=== PATIENT | male | born 1980 | race Caucasian/White ===

== ENCOUNTER → 2020-07-18 | Outpatient (CLI) | payer BC, OTHER | END | disposition home or self-care (01) | LOC: LABWHC1 16:03 | PROVIDERS: ATTEND Emergency Medicine | DX: Z20.828 Contact with and (suspected) exposure to other viral communicable diseases (principal) | CPT/HCPCS: U0003; C9803 ==

== ENCOUNTER → 2020-11-10 | Outpatient (CLI) | payer BC ==
--- NOTE | 2020-11-10 10:43 | XR ---
EXAMINATION TYPE: XR chest 2V DATE OF EXAM: 11/10/2020 COMPARISON: NONE HISTORY: Leukocytosis. TECHNIQUE: Frontal and lateral views of the chest are obtained. FINDINGS: There is no focal air space opacity, pleural effusion, or pneumothorax seen. The cardiac silhouette size is within normal limits. The osseous structures are intact. IMPRESSION: No acute cardiopulmonary process.
== END ==
LOC: RADXRMAIN 09:10
PROVIDERS: ATTEND Internal Medicine Hematology & Oncology
DX: D72.829 Elevated white blood cell count, unspecified (principal)
CPT/HCPCS: 71046

== ENCOUNTER → 2021-03-05 | Outpatient (CLI) | payer BC ==
--- NOTE | 2021-03-05 12:27 | MR ---
EXAMINATION TYPE: MR cervical spine wo con DATE OF EXAM: 03/05/2021 COMPARISON: None HISTORY: Neck pain into rt arm and fingers TECHNIQUE: Multiplanar, multisequence images of the cervical spine were acquired. C2-C3: No evidence for degenerative disc disease. No disc bulge/herniation or protrusion. No Canal stenosis. Foramina are patent bilaterally. C3-C4: No evidence for degenerative disc disease. No disc bulge/herniation or protrusion. No Canal stenosis. Foramina are patent bilaterally. C4-C5: Left-sided foraminal encroachment is present due to uncovertebral joint hypertrophy. No signif icant spinal stenosis or evident disc herniation. C5-C6: Posterior extension endplate disc complex causes effacement of anterior thecal sac. There is r ight lateral, posterior paracentral extension endplate disc complex causing anterolateral mass effect on the thecal sac, encroachment on the right neural foramen with anterolateral mass effect on the th ecal sac, possibly contact with the cervical cord laterally, uncovertebral joint hypertrophy also cau ses left-sided foraminal encroachment. No significant spinal stenosis. C6-C7: Posterior extension endplate disc complex results in mild spinal stenosis. There is bilateral foraminal encroachment left greater than right, facet arthropathy changes present. Circumferential po sterior disc bulge is noted. C7-T1: No evidence for degenerative disc disease. No disc bulge/herniation or protrusion. No Canal stenosis. Foramina are patent bilaterally. Cervical segments are intact. There is normal alignment. Cervical spinal cord is of normal signal. Craniovertebral junction relationships are within normal limits. There is multilevel spondylosis. L oss of disc height signal is present at C5-6 and C6-7 greater than C4-5, there is associated endplate discogenic marrow signal change. IMPRESSION: Degenerative disc disease as described. Multilevel foraminal encroachment.
== END | disposition home or self-care (01) ==
LOC: RADMRIMAIN 07:44
PROVIDERS: ATTEND Nurse Practitioner
DX: M48.02 Spinal stenosis, cervical region (principal); M47.22 Other spondylosis with radiculopathy, cervical region; M99.71 Connective tissue and disc stenosis of intervertebral foramina of cervical region
CPT/HCPCS: 72141

== ENCOUNTER 2024-02-05 17:14 | Emergency (ER) | payer BC ==
[2024-02-05 17:26] VITALS: TEMP 97.9
--- NOTE | 2024-02-05 17:52 | ED ---
Recheck HPI - General Source: patient Mode of arrival: ambulatory Limitations: no limitations <Francisco Kulkarni - Last Filed: 02/19/24 04:17> <Valeriano Reyes - Last Filed: 02/29/24 13:35> - General Chief Complaint: Recheck/Abnormal Lab/Rx Stated Complaint: HTN Time Seen by Provider: 02/05/24 17:51 - History of Present Illness Initial Comments: Quick note: 44-year-old male sent from his doctor's office for hypertension. Patient was previously on antihypertensives, he is not sure which medications, states that he stopped taking them because "I do not like taking pills". When he was seen at the doctor today for a separate issue they sent him over due to his elevated blood pressure. He denies any chest pain, difficulty breathing, headache, blurry vision, dizziness, abdominal pain, nausea, vomiting. (Francisco Kulkarni) - Related Data Previous Rx's Medication Instructions Recorded lisinopriL [Zestril] 10 mg PO DAILY #30 tab 02/05/24 Allergies Allergy/AdvReac Type Severity Reaction Status Date / Time No Known Allergies Allergy Verified 02/05/24 17:26 Review of Systems ROS Other: All systems not noted in ROS Statement are negative. <Francisco Kulkarni - Last Filed: 02/19/24 04:17> ROS Other: All systems not noted in ROS Statement are negative. <Valeriano Reyes - Last Filed: 02/29/24 13:35> ROS Statement: Those systems with pertinent positive or pertinent negative responses have been documented in the HPI. Past Medical History Past Medical History: Hypertension History of Any Multi-Drug Resistant Organisms: None Reported Past Surgical History: No Surgical Hx Reported Past Psychological History: No Psychological Hx Reported Smoking Status: Vaper Past Alcohol Use History: None Reported Past Drug Use History: None Reported <Francisco Kulkarni - Last Filed: 02/19/24 04:17> General Exam Limitations: no limitations <Francisco Kulkarni - Last Filed: 02/19/24 04:17> Limitations: no limitations General appearance: alert, in no apparent distress Head exam: Present: atraumatic, normocephalic Eye exam: Present: normal appearance. Absent: scleral icterus, conjunctival injection Neck exam: Present: normal inspection Respiratory exam: Present: normal lung sounds bilaterally. Absent: respiratory distress, wheezes, rales, rhonchi, stridor, accessory muscle use Cardiovascular Exam: Present: regular rate, normal rhythm, normal heart sounds. Absent: systolic murmur, diastolic murmur, rubs, gallop GI/Abdominal exam: Present: soft. Absent: distended, tenderness, guarding, rebound, rigid, mass Extremities exam: Present: normal inspection, normal capillary refill. Absent: pedal edema, calf tenderness Back exam: Present: normal inspection. Absent: CVA tenderness (R), CVA tenderness (L) Neurological exam: Present: alert Skin exam: Present: warm, dry, intact, normal color. Absent: rash <Valeriano Reyes - Last Filed: 02/29/24 13:35> - General Exam Comments Initial Comments: Visual Physical Exam Vital signs reviewed General: Well-appearing, nontoxic, no acute distress. Head: Normocephalic, atraumatic Eyes: PERRLA, EOMI ENT: Airway patent Chest: Nonlabored breathing Skin: No visual rash, normal skin tone Neuro: Alert and oriented 3 Musculoskeletal: No gross abnormalities (Francisco Kulkarni) Course Vital Signs 02/05/24 02/05/24 17:24 22:25 Temperature 97.9 F Pulse Rate 96 93 Respiratory 16 18 Rate Blood Pressure 234/153 212/146 O2 Sat by Pulse 94 L 97 Oximetry Medical Decision Making - Lab Data Result diagrams: 02/05/24 18:08 02/05/24 18:08 <Francisco Kulkarni - Last Filed: 02/19/24 04:17> - Lab Data Result diagrams: 02/05/24 18:08 02/05/24 18:08 - EKG Data -: EKG Interpreted by Oh EKG shows normal: sinus rhythm, axis (Normal), intervals (Normal), QRS complexes (Incomplete right bundle branch block.) Rate: tachycardia (Rate 101 bpm) Interpretation: nonspecific ST-T wave changes <Valeriano Reyes - Last Filed: 02/29/24 13:35> - Medical Decision Making I performed the quick note portion of this visit, electronically signed Francisco Kulkarni PA-C (Francisco Kulkarni) Was pt. sent in by a medical professional or institution ([facility], [facility], urgent care, hospital, or fpc...) When possible be specific @ -Patient is sent by his primary physician clinic to have further evaluation hypertension Did you speak to anyone other than the patient for history (EMS, parent, family, police, friend...)? What history was obtained from this source @ -[No] Did you review nursing and triage notes (agree or disagree)? Why? @ -[I reviewed and agree with nursing and triage notes] Were old charts reviewed (outside hosp., previous admission, EMS record, old EKG, old radiological studies, urgent care reports/EKG's, fpc records)? Report findings @ -[No old charts were reviewed] Differential Diagnosis (chest pain, altered mental status, abdominal pain women, abdominal pain men, vaginal bleeding, weakness, fever, dyspnea, syncope, headache, dizziness, GI bleed, back pain, seizure, CVA, palpatations, mental health, musculoskeletal)? @ -[Amphetamine Toxicity Anxiety Disorders Apnea, Sleep Cocaine-Related Cardiomyopathy Heart Failure Hyperthyroidism, Thyroid Storm, and Graves Disease Hypertrophic Cardiomyopathy Myocardial Infarction Phencyclidine Toxicity Primary Aldosteronism Stroke, Hemorrhagic Stroke, Ischemic EKG interpreted by me (3pts min.). @ -[I interpreted as above] X-rays interpreted by me (1pt min.). @ -[ CT interpreted by me (1pt min.). @ -[None done] U/S interpreted by me (1pt. min.). @ -[None done] What testing was considered but not performed or refused? (CT, X-rays, U/S, labs)? Why? @ -[None] What meds were considered but not given or refused? Why? @ -[None] Did you discuss the management of the patient with other professionals (professionals i.e. , PA, [facility], lab, RT, psych nurse, case management social worker, drafter commercial, teacher, public relations officer, protective services case worker)? Give summary @ -[No] Was smoking cessation discussed for >3mins.? @ -[No] Was critical care preformed (if so, how long)? @ -[No] Were there social determinants of health that impacted care today? How? (Homelessness, low income, unemployed, alcoholism, drug addiction, transportation, low edu. Level, literacy, decrease access to med. care, [facility], rehab)? @ -[No] Was there de-escalation of care discussed even if they declined (Discuss DNR or withdrawal of care, Hospice)? DNR status @ -[No] What co-morbidities impacted this encounter? (DM, HTN, Smoking, COPD, CAD, Cancer, CVA, ARF, Chemo, Hep., AIDS, mental health diagnosis, sleep apnea, morbid obesity)? @ -[Hypertension Was patient admitted / discharged? Hospital course, mention meds given and route, prescriptions, significant lab abnormalities, going to OR and other pertinent info. @ -Discussed with patient that blood pressure must be lowered over the long- term or there is risk of endorgan damage including but not limited to stroke, heart attack, kidney disease, retinal damage, amongst other conditions. Patient will follow and work on lowering blood pressure. Return parameters discussed Undiagnosed new problem with uncertain prognosis? @ -[No] Drug Therapy requiring intensive monitoring for toxicity (Heparin, Nitro, Insulin, Cardizem)? @ -[No] Were any procedures done? @ -[No] Diagnosis/symptom? @ -[Acute on chronic hypertension Hyperglycemia Acute, or Chronic, or Acute on Chronic? @ -Acute on chronic Uncomplicated (without systemic symptoms) or Complicated (systemic symptoms)? @ -[Uncomplicated Side effects of treatment? @ -[No] Exacerbation, Progression, or Severe Exacerbation? @ -[No] Poses a threat to life or bodily function? How? (Chest pain, [place], [place], pneumonia, PE, COPD, DKA, ARF, appy, cholecystitis, CVA, Diverticulitis, Homicidal, Suicidal, threat to staff... and all critical care pts) @ -[Yes there is threat but over a long period of time (Valeriano Reyes) - Lab Data Lab Results 02/05/24 02/05/24 02/05/24 Range/Units 18:08 18:08 18:08 WBC 11.3 H (3.8-10.6) k/uL RBC 5.25 (4.30-5.90) m/uL Hgb 14.9 (13.0-17.5) gm/dL Hct 46.2 (39.0-53.0) % MCV 87.9 (80.0-100.0) fL MCH 28.4 (25.0-35.0) pg MCHC 32.3 (31.0-37.0) g/dL RDW 12.5 (11.5-15.5) % Plt Count 199 (150-450) k/uL MPV 11.6 Neutrophils % 68 % Lymphocytes % 24 % Monocytes % 5 % Eosinophils % 2 % Basophils % 1 % Neutrophils # 7.7 (1.3-7.7) k/uL Lymphocytes # 2.7 (1.0-4.8) k/uL Monocytes # 0.5 (0-1.0) k/uL Eosinophils # 0.2 (0-0.7) k/uL Basophils # 0.1 (0-0.2) k/uL Manual Slide Review Performed Large Platelets Present RBC Morphology Normal Sodium 138 (137-145) mmol/L Potassium 4.1 (3.5-5.1) mmol/L Chloride 105 (98-107) mmol/L Carbon Dioxide 24 (22-30) mmol/L Anion Gap 9 mmol/L BUN 14 (9-20) mg/dL Creatinine 0.74 (0.66-1.25) mg/dL Est GFR (CKD-EPI)AfAm >90 (>60 ml/min/1.73 sqM) Est GFR (CKD-EPI)NonAf >90 (>60 ml/min/1.73 sqM) Glucose 172 H (74-99) mg/dL Calcium 9.4 (8.4-10.2) mg/dL Total Bilirubin 0.8 (0.2-1.3) mg/dL AST 48 (17-59) U/L ALT 55 H (4-49) U/L Alkaline Phosphatase 62 (38-126) U/L Troponin I <0.012 (0.000-0.034) ng/mL Total Protein 8.2 (6.3-8.2) g/dL Albumin 4.8 (3.5-5.0) g/dL Disposition <Francisco Kulkarni - Last Filed: 02/19/24 04:17> Is patient prescribed a controlled substance at d/c from ED?: No <Valeriano Reyes - Last Filed: 02/29/24 13:35> Clinical Impression: Hypertension Disposition: HOME SELF-CARE Condition: Good Instructions (If sedation given, give patient instructions): Chronic Hyperten lopez (ED) Prescriptions: lisinopriL [Zestril] 10 mg PO DAILY #30 tab Referrals: Al Joseph MD [Primary Care Provider] - 1-2 days
[2024-02-05 18:28] LABS: Basophils # (A) 0.1 k/uL (0-0.2); Basophils % (A) 1 %; Eosinophils # (A) 0.2 k/uL (0-0.7); Eosinophils % (A) 2 %; HCT 46.2 % (39.0-53.0); HGB 14.9 gm/dL (13.0-17.5); Lymphocytes # (A) 2.7 k/uL (1.0-4.8); Lymphocytes % (A) 24 %; MCH 28.4 pg (25.0-35.0); MCHC 32.3 g/dL (31.0-37.0); MCV 87.9 fL (80.0-100.0); Mean Platelet Volume 11.6; Monocytes # (A) 0.5 k/uL (0-1.0); Monocytes % (A) 5 %; Neutrophils # (A) 7.7 k/uL (1.3-7.7); Neutrophils % (A) 68 %; Platelet Count 199 k/uL (150-450); RBC 5.25 m/uL (4.30-5.90); RDW 12.5 % (11.5-15.5); WBC 11.3 k/uL (3.8-10.6)
[2024-02-05 18:51] LABS: ALT 55 U/L (4-49); African American GFR (CKD) >90 (>60 ml/min/1.73 sqM); Anion Gap 9 mmol/L; Blood Urea Nitrogen 14 mg/dL (9-20); Calcium 9.4 mg/dL (8.4-10.2); Carbon Dioxide 24 mmol/L (22-30); Chloride 105 mmol/L (98-107); Glucose 172 mg/dL (74-99); Non-African American GFR(CKD) >90 (>60 ml/min/1.73 sqM); Sodium 138 mmol/L (137-145); Total Bilirubin 0.8 mg/dL (0.2-1.3)
[2024-02-05 18:52] LABS: Potassium 4.1 mmol/L (3.5-5.1); Total Protein 8.2 g/dL (6.3-8.2)
[2024-02-05 18:53] LABS: AST 48 U/L (17-59); Albumin 4.8 g/dL (3.5-5.0); Alkaline Phosphatase 62 U/L (38-126)
[2024-02-05 19:42] LABS: Large Platelets Present; RBC Morphology Normal
[2024-02-05 22:34] VITALS: BP 212/146; PULSE 93; RESP 18
[2024-02-05] MEDS: lisinopriL 10 MG TAB PO STA (22:51)
== END 2024-02-05 22:58 | disposition home or self-care (01) ==
LOC: EC 17:14
DX: I10 Essential (primary) hypertension (principal); F17.290 Nicotine dependence, other tobacco product, uncomplicated
CPT/HCPCS: 36415; 80053; 84484; 85025; 93005; 99283

== ENCOUNTER → 2024-02-20 | Outpatient (CLI) | payer BC ==
--- NOTE | 2024-02-20 17:08 | CA ---
Transthoracic Echo Report Name: Jacob Hill Age: 44 Gender: M : 1980 Exam Date: 02/20/2024 15:00 Exam Location: [place] [facility] Ht (in): 64 Wt (lb): 210 Ordering Physician: Al Joseph MD Attending/Referring Phys: [id number], Jake Tight Barrel Inspector Alix Coleman, [facility] Procedure CPT: Indications: I10 HTN Cardiac Hx: Technical Quality: Good Contrast 1: Total Dose (mL): Contrast 2: Total Dose (mL): MEASUREMENTS (Male / Female) Normal Values 2D ECHO LV Diastolic Diameter PLAX 4.9 cm 4.2 - 5.9 / 3.9 - 5.3 cm LV Systolic Diameter PLAX 3.3 cm IVS Diastolic Thickness 1.3 cm 0.6 - 1.0 / 0.6 - 0.9 cm LVPW Diastolic Thickness 1.2 cm 0.6 - 1.0 / 0.6 - 0.9 cm LV Relative Wall Thickness 0.5 RV Internal Dim ED PLAX 2.8 cm LA Systolic Diameter LX 3.4 cm 3.0 - 4.0 / 2.7 - 3.8 cm LA Volume 43.9 cm??? 18 - 58 / 22 - 52 cm??? LA Volume Index 20.7 cm???/m??? 16 - 28 cm???/m??? M-MODE Aortic Root Diameter MM 2.8 cm AV Cusp Separation MM 2.0 cm DOPPLER AV Peak Velocity 166.8 cm/s AV Peak Gradient 11.1 mmHg MV Area PHT 3.1 cm??? Mitral E Point Velocity 109.5 cm/s Mitral A Point Velocity 122.5 cm/s Mitral E to A Ratio 0.9 MV Deceleration Time 241.2 ms FINDINGS Left Ventricle Left ventricular ejection fraction is estimated at 60-65 %. Left ventricular cavity size normal. Mildly increased septal wall thickness. Normal left ventricular wall motion. Right Ventricle Normal right ventricular size. Unable to estimate the right ventricular systolic pressure. Right Atrium Normal right atrial size. No right atrial thrombus or mass seen. Left Atrium Normal left atrial size. No left atrial thrombus or mass present. Mitral Valve Structurally normal mitral valve. No evidence for mitral valve prolapse. No mitral stenosis. Trace mitral regurgitation. Aortic Valve Trileaflet aortic valve. No aortic valve stenosis or regurgitation. Tricuspid Valve Structurally normal tricuspid valve. No tricuspid stenosis, regurgitation or prolapse. Pulmonic Valve Structurally normal pulmonic valve. No pulmonic regurgitation. Pericardium No pericardial effusion. No pleural effusion. Aorta Normal size aortic root and proximal ascending aorta. CONCLUSIONS Normal LV size, wall thickness and systolic function. Estimated LVEF 60-65%. No obvious regional wall motion abnormality. No significant diastolic dysfunction. No significant valvular dysfunction. Overall normal chamber sizes. No pericardial effusion. No prior echo to compare with. Previewed by: Dr Angelo Salinas (Electronically Signed) Final Date: 20 February 2024 17:07
== END | disposition home or self-care (01) ==
LOC: RADECHMAIN 14:47
PROVIDERS: ATTEND Family Medicine
DX: I10 Essential (primary) hypertension (principal)
CPT/HCPCS: 93306